=== PATIENT | male | born 1990 | race Caucasian/White ===

== ENCOUNTER 2016-09-26 21:08 | Emergency (ER) | payer BC ==
[~2016-09-26] VITALS: Ht 182.9 cm; Wt 83.0 kg
--- NOTE | 2016-09-26 21:25 | NUR ---
Seen and received pt for left hand laceration from washing glass at home, denies any pain, nor numbness. Pt is [id number] ambulatory.
[2016-09-26] MEDS ORDERED: LIDOCAINE 1%-EPI 1:100,000 20 ML VIAL TP ONE (22:00)
--- NOTE | 2016-09-26 22:40 | NUR ---
performing sutures at left hand.
--- NOTE | 2016-09-26 23:20 | NUR ---
re-evaluating sutured hand at the bedside.
[2016-09-26] MEDS ORDERED: ATOR10TA PO (23:24)
[2016-09-26] MEDS ORDERED: LISI10TA5 PO (23:24)
[2016-09-26] MEDS ORDERED: METF500T4 PO (23:24)
--- NOTE | 2016-09-27 00:10 | NUR ---
Patient discharged to home in stable conditon WITH RELATIVE TAKING PATIENT HOME. Written and verbal after care instructions given. Patient verbalizes understanding of instructions. WALKED OUT OF ER WITH STEADY GAIT
[2016-09-27 00:58] VITALS: BP 122/85
== END 2016-09-27 00:58 | disposition home or self-care (01) ==
LOC: ER 21:11
DX: S61.217A Laceration without foreign body of left little finger without damage to nail, initial encounter (principal); W25.XXXA Contact with sharp glass, initial encounter; Y93.89 Activity, other specified; Y99.8 Other external cause status; Y92.89 Other specified places as the place of occurrence of the external cause; F10.20 Alcohol dependence, uncomplicated; F17.200 Nicotine dependence, unspecified, uncomplicated
CPT/HCPCS: 73130; A4663; J3490

== ENCOUNTER 2016-10-03 20:04 | Emergency (ER) | payer BC ==
[~2016-10-03] VITALS: Ht 182.9 cm; Wt 82.6 kg
[~2016-10-03 20:04] MED LIST: ATOR10TA PO; LISI10TA5 PO; METF500T4 PO
--- NOTE | 2016-10-03 20:12 | NUR ---
Patient walked into ER c/o left hand suture removal. Suture site is clean and intact with no redness and swelling noted
--- NOTE | 2016-10-03 20:42 | NUR ---
Dr Cisse into to remove suture
--- NOTE | 2016-10-03 20:53 | NUR ---
Patient discharged to home in stable conditon. Written and verbal after care instructions given. Patient verbalizes understanding of instructions. Walked out of ER with steady gait
== END 2016-10-03 20:54 | disposition home or self-care (01) ==
LOC: ER 20:04
DX: S61.216D Laceration without foreign body of right little finger without damage to nail, subsequent encounter (principal); K21.9 Gastro-esophageal reflux disease without esophagitis; F10.20 Alcohol dependence, uncomplicated; F17.200 Nicotine dependence, unspecified, uncomplicated; X58.XXXD Exposure to other specified factors, subsequent encounter; Y99.8 Other external cause status; Y92.89 Other specified places as the place of occurrence of the external cause
CPT/HCPCS: 99283; 99406; A4663